=== PATIENT | female | born 1990 | race Caucasian/White ===

== ENCOUNTER 2020-04-05 13:13 | Emergency (ER) | payer OTHER ==
[~2020-04-05] VITALS: Ht 162.6 cm; Wt 90.7 kg
[2020-04-05 13:36] VITALS: Ht 162.6 cm; Wt 90.7 kg
[2020-04-05 17:34] VITALS: BP 100/71
== END 2020-04-05 17:34 | disposition home or self-care (01) ==
LOC: ED 13:13 → EDBD 13:13 → ED 17:34
DX: S83.004A Unspecified dislocation of right patella, initial encounter (principal); W01.0XXA Fall on same level from slipping, tripping and stumbling without subsequent striking against object, initial encounter; Y93.89 Activity, other specified; Y92.89 Other specified places as the place of occurrence of the external cause; Y99.0 Civilian activity done for income or pay
CPT/HCPCS: Q0092